=== PATIENT | female | born 2000 | race Caucasian/White ===

== ENCOUNTER 2020-06-08 06:24 | Emergency (ER) | payer OTHER ==
[~2020-06-08] VITALS: Ht 165.1 cm; Wt 74.8 kg
[2020-06-08 06:30] VITALS: BP 113/80
[2020-06-08] MEDS ORDERED: KETOROLAC 30 MG/ML VIAL IM ONE (06:45)
[2020-06-08] MEDS ORDERED: ACHD5005 PO (06:55)
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
== END 2020-06-08 07:01 | disposition home or self-care (01) ==
LOC: ER 06:27
DX: T25.222A Burn of second degree of left foot, initial encounter (principal); X10.1XXA Contact with hot food, initial encounter
CPT/HCPCS: 99282